=== PATIENT | male | born 1980 | race African-American/Black ===

== ENCOUNTER 2019-01-03 16:41 | Emergency (ER) | payer OTHER ==
[~2019-01-03] VITALS: Ht 170.2 cm; Wt 99.8 kg
[2019-01-03 16:55] VITALS: TEMP 97.3
[2019-01-03 18:32] VITALS: BP 131/74
== END 2019-01-03 18:32 | disposition home or self-care (01) ==
LOC: ED 16:41
DX: J20.9 Acute bronchitis, unspecified (principal); J98.01 Acute bronchospasm
CPT/HCPCS: 94664; 99283

== ENCOUNTER 2019-06-08 18:03 | Emergency (ER) | payer OTHER ==
[~2019-06-08] VITALS: Ht 170.2 cm; Wt 99.8 kg
[2019-06-08 18:24] VITALS: TEMP 98.6
[2019-06-08 22:34] LABS: PLATELET COUNT 240 K/uL (142-355)
[2019-06-08 22:44] LABS: POTASSIUM 3.3 mmol/L (3.6-5.2)
[2019-06-09 04:02] VITALS: BP 129/76
== END 2019-06-09 04:03 | disposition home or self-care (01) ==
LOC: ED 18:03
PROVIDERS: Family Medicine
DX: N13.2 Hydronephrosis with renal and ureteral calculous obstruction (principal); N39.0 Urinary tract infection, site not specified
CPT/HCPCS: 36415; 80053; 81000; 85027; 87086; 87088; 96360; 96365; 96374; 96375; 99284; J0696; J1885